=== PATIENT | male | born 1965 | race Caucasian/White ===

== ENCOUNTER 2024-10-30 10:20 | Emergency (ER) | payer OTHER, BC ==
[2024-10-30 11:10] LABS: BASOPHILS ABSOLUTE AUTO 0.05 K/uL (0.00-0.20); BASOPHILS PERCENT AUTO 0.5 % (0.0-2.0); EOSINOPHILS ABSOLUTE AUTO 0.03 K/uL (0.00-0.50); EOSINOPHILS PERCENT AUTO 0.3 % (0.0-5.0); HEMATOCRIT 47.7 % (39.0-49.0); HEMOGLOBIN 16.1 g/dL (13.1-16.8); IMMATURE GRAN ABSOLUTE AUTO 0.02 10^3/uL (0.00-0.04); IMMATURE GRAN PERCENT AUTO 0.2 % (0.0-0.4); LYMPHOCYTES PERCENT AUTO 24.1 % (10.0-50.0); MEAN CORPUSCULAR HGB CONC 33.8 g/dL (31.7-36.0); MEAN CORPUSCULAR VOLUME 91.9 fL (84.0-98.0); MONOCYTES ABSOLUTE AUTO 0.58 K/uL (0.00-1.00); MONOCYTES PERCENT AUTO 5.4 % (2.0-14.0); NEUTROPHILS PERCENT AUTO 69.5 % (45.0-80.0); PLATELET COUNT,PLT 278 K/uL (150-350); RED BLOOD CELL COUNT 5.19 M/uL (4.33-5.41); RED CELL DISTRIBUTION WIDTH 12.6 % (11.2-14.1); WHITE BLOOD CELL COUNT,WBC 10.8 K/uL (4.0-10.2)
[2024-10-30 11:27] LABS: ALBUMIN 4.1 g/dL (3.4-5.0); ANION GAP 10.5 meq/L (7-15); BILIRUBIN TOTAL 0.4 mg/dL (0.2-1.0); CALCIUM 8.9 mg/dL (8.5-10.1); CARBON DIOXIDE,CO2 24.5 mmol/L (21.0-32.0); CREATININE 1.08 mg/dL (0.51-1.17); EST CRCL DRUG DOSING (CG) 83.51 mL/min; POTASSIUM,K 4.4 mmol/L (3.5-5.1); PROTEIN TOTAL,TP 7.5 g/dL (6.4-8.2)
[2024-10-30] MEDS: traMADol 50 MG Tab PO ONE (11:54)
== END 2024-10-30 12:32 | disposition home or self-care (01) ==
LOC: LL.ED 10:20
DX: S30.1XXA Contusion of abdominal wall, initial encounter (principal); F17.210 Nicotine dependence, cigarettes, uncomplicated; Z90.49 Acquired absence of other specified parts of digestive tract; Z88.1 Allergy status to other antibiotic agents; Z91.048 Other nonmedicinal substance allergy status; Z91.018 Allergy to other foods; Z79.899 Other long term (current) drug therapy; W22.8XXA Striking against or struck by other objects, initial encounter
CPT/HCPCS: 36415; 74018; 80053; 85025; 99283; 99284; A9270-GY